=== PATIENT | male | born 1995 | race Caucasian/White ===

== ENCOUNTER 2017-02-20 23:00 | Emergency (ER) | payer SELFPAY ==
[2017-02-21 00:50] VITALS: BP 105/41
== END 2017-02-21 00:50 | disposition home or self-care (01) ==
LOC: ED 23:00
DX: S31.811A Laceration without foreign body of right buttock, initial encounter (principal); W26.8XXA Contact with other sharp object(s), not elsewhere classified, initial encounter; Y93.89 Activity, other specified; Y99.8 Other external cause status; Y92.89 Other specified places as the place of occurrence of the external cause

== ENCOUNTER 2017-04-04 13:54 | Emergency (ER) | payer MEDICAID ==
[2017-04-04 16:13] VITALS: BP 137/72
== END 2017-04-04 16:13 | disposition home or self-care (01) ==
LOC: ED 13:54
DX: S31.821D Laceration without foreign body of left buttock, subsequent encounter (principal); W45.8XXD Other foreign body or object entering through skin, subsequent encounter; Y92.89 Other specified places as the place of occurrence of the external cause; Y99.8 Other external cause status